=== PATIENT | female | born 1995 | race American Indian/Alaskan Native ===

== ENCOUNTER 2017-11-23 14:03 | Emergency (ER) | payer OTHER, MEDICAID ==
[2017-11-23 14:33] VITALS: BP 104/66; PULSE 77; RESP 18; TEMP 98.7; O2SAT 98
[2017-11-23 14:56] VITALS: BMI 26.9
--- NOTE | 2017-11-23 15:43 | C.PDOC ---
History Of Present Illness 22 y/o female currently 37 weeks and history of Asthma presents to ED with c/o intermittent episodes of sharp chest pain that radiates to back and generalized weakness and lightheadedness for 2 days. Patient reports sob when pain develops due to painful to take deep breath, and states chest pain lasts about 2 minutes each episode, Patient has not taken medication for pain and denies nausea, vomiting, leg swelling, fever, cough, chills or any other complaints at this time. pt reports she feels baby moving today denies vaginal bleeding. pt reports this doesn't feel like asthma. Time Seen by Provider: 11/23/17 15:11 Chief Complaint (Nursing): Chest Pain History Per: Patient History/Exam Limitations: no limitations Onset/Duration Of Symptoms: Days Current Symptoms Are (Timing): Still Present Quality: Sharp Past Medical History Reviewed: Historical Data, Nursing Documentation, Vital Signs Vital Signs: Last Vital Signs Temp 98.7 F 11/23/17 14:32 Pulse 77 11/23/17 14:32 Resp 18 11/23/17 14:32 BP 104/66 11/23/17 14:32 Pulse Ox 98 11/24/17 13:35 - Medical History PMH: Asthma Surgical History: No Surg Hx Family History: States: No Known Family Hx - Social History Hx Alcohol Use: No Hx Substance Use: No - Immunization History Hx Tetanus Toxoid Vaccination: Yes Hx Influenza Vaccination: Yes Hx Pneumococcal Vaccination: Yes Review Of Systems Constitutional: Positive for: Weakness. Negative for: Fever, Chills Cardiovascular: Positive for: Chest Pain Respiratory: Positive for: Shortness of Breath Gastrointestinal: Negative for: Nausea, Vomiting, Abdominal Pain Skin: Negative for: Rash Physical Exam - Physical Exam Appears: Non-toxic, No Acute Distress Skin: Warm, Dry, No Rash Head: Atraumatic, Normacephalic Eye(s): bilateral: Normal Inspection Oral Mucosa: Moist Neck: Normal ROM, Supple Cardiovascular: Rhythm Regular Respiratory: Normal Breath Sounds, No Rales, No Rhonchi, No Wheezing Gastrointestinal/Abdominal: No Tenderness, No Guarding, No Rebound, Other ( Gravid Abdomen) Back: No CVA Tenderness Extremity: Normal ROM, No Pedal Edema, No Calf Tenderness, Capillary Refill (<2 seconds) Neurological/Psych: Oriented x3, Normal Speech, Normal Cognition, Normal Motor, Normal Sensation ED Course And Treatment ECG: Interpreted By Me, Viewed By Me ECG Rhythm: Sinus Rhythm Rate From EC (BPM) O2 Sat by Pulse Oximetry: 98 (RA) Pulse Ox Interpretation: Normal Medical Decision Making Medical Decision Making: Plan: 37 w female with intermittent cp and sob. plan; CXR, UA, Blood work, including d-dimer ordered. plan discussed with patient, possible vq scan or ct angio chest to eval for pe if d-dimer elevated. 350 pm pt not found on stretcher by RN, eloped from ED. Disposition - Disposition Disposition: ELOPEMENT - ER ONLY Disposition Time: 15:50 Condition: STABLE Forms: [employer] (Slovak) - Clinical Impression Clinical Impression: Chest pain - PA / [employer] STENOGRAPHER / Resident Statement MD/DO has reviewed & agrees with the documentation as recorded. - Scribe Statement The provider has reviewed the documentation as recorded by the Scribbc Webber All medical record entries made by the Dedeibe were at my direction and personally dictated by me. I have reviewed the chart and agree that the record accurately reflects my personal performance of the history, physical exam, medical decision making, and the department course for this patient. I have also personally directed, reviewed, and agree with the discharge instructions and disposition.
--- NOTE | 2017-11-24 21:51 | CARD ---
APPROVED REPORT EKG Measurement Heart [id number] <Conclusion> Normal sinus rhythm Nonspecific T wave abnormality Abnormal ECG
== END 2017-11-23 15:11 | disposition left against medical advice (07) ==
LOC: C.ER 14:03
DX: O26.893 Other specified pregnancy related conditions, third trimester (principal); Z3A.37 37 weeks gestation of pregnancy; R07.9 Chest pain, unspecified